=== PATIENT | female | born 1960 | race Caucasian/White ===

== ENCOUNTER 2017-10-17 09:50 | Emergency (ER) | payer OTHER ==
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
[2017-10-17 10:29] VITALS: BP 144/46
== END 2017-10-17 10:39 | disposition home or self-care (01) ==
LOC: ER 10:24
DX: M25.572 Pain in left ankle and joints of left foot (principal); M79.89 Other specified soft tissue disorders; V49.50XA Passenger injured in collision with unspecified motor vehicles in traffic accident, initial encounter
CPT/HCPCS: 99281; L0172